=== PATIENT | male | born 1975 | race Caucasian/White ===

== ENCOUNTER 2017-05-03 13:19 | Emergency (ER) | payer OTHER ==
[~2017-05-03] VITALS: Ht 190.5 cm; Wt 106.4 kg
[~2017-05-03 13:19] MED LIST: "\\\"CHOLESTEROL MED\\\"" PO; KEFLEX500 MG PO; MELOXICAM15 MG PO; MEN'S MULTI-VI1 EACH PO; OMEPRAZOLE40 M1 PO; PRAVASTATIN SOD40 MG PO; ZESTRIL,PRINIVI10 MG PO
[2017-05-03] MEDS ORDERED: LIBRIUM25 MG PO (15:23)
[2017-05-03 15:40] VITALS: BP 134/93
== END 2017-05-03 16:02 | disposition home or self-care (01) ==
LOC: EME 13:19
DX: F10.239 Alcohol dependence with withdrawal, unspecified (principal); F10.229 Alcohol dependence with intoxication, unspecified; F41.9 Anxiety disorder, unspecified; F17.200 Nicotine dependence, unspecified, uncomplicated; Y90.9 Presence of alcohol in blood, level not specified
CPT/HCPCS: 90832; 99281; 99284